=== PATIENT | female | born 1985 | race African-American/Black ===

== ENCOUNTER 2018-05-28 10:43 | Emergency (ER) | payer BC ==
[2018-05-28] MEDS ORDERED: Ketorolac Tromethamine 60 MG/2 ML VIAL ONE (11:07)
[2018-05-28] MEDS ORDERED: Lidocaine 1% (PF) 30 ML VIAL ONE (12:03)
[2018-05-28] MEDS ORDERED: Triple Antibiotic Oint 1 GM Packet ONE (12:51)
--- NOTE | 2018-05-28 12:52 | RAD ---
FRONTAL AND LATERAL IMAGING OF THE RIGHT TIBIA/FIBULA: Date: 05-28-18 Comparison: None. History: Laceration. FINDINGS: There is a soft tissue defect involving the proximal right calf anterior and lateral to the proximal right fibula. No associated fracture. No radiopaque foreign body. IMPRESSION: Proximal lateral right calf laceration with no associated fracture or radiopaque foreign body. POS: [facility]
== END 2018-05-28 12:35 | disposition home or self-care (01) ==
LOC: ERS 10:43
DX: S81.811A Laceration without foreign body, right lower leg, initial encounter (principal); F41.9 Anxiety disorder, unspecified; F32.9 Major depressive disorder, single episode, unspecified; F17.210 Nicotine dependence, cigarettes, uncomplicated; Z79.899 Other long term (current) drug therapy; W26.8XXA Contact with other sharp object(s), not elsewhere classified, initial encounter
CPT/HCPCS: 12002; 90471; 96372; J1885; J2001

== ENCOUNTER 2018-09-19 07:57 | Day surgery (SDC) | payer BC ==
[2018-09-18 13:48] VITALS: BMI 36.6
[2018-09-19] MEDS ORDERED: Ketorolac Tromethamine 30 MG/ML VIAL ONE (08:26)
[2018-09-19 08:46] LABS: #Basophils 0.1 thou/uL (0.0-0.2); #Eosinphils 0.2 thou/uL (0.0-0.7); #Lymphocytes 3.4 thou/uL (1.20-3.40); #Monocytes 0.7 thou/uL (0.11-0.59); #Neutrophils 5.1 thou/uL (1.40-6.50); %Basophils 0.7 % (0.0-1.0); %Eosinophils 2.1 % (0.0-10.0); %Lymphocytes 35.9 % (21.0-51.0); %Monocytes 7.1 % (0.0-10.0); %Neutrophils 54.2 % (42.0-75.0); Hemoglobin 13.2 g/dL (12.0-16.0); Mean Corpuscular HGB CONC 32.4 g/dL (32.0-36.0); Mean Corpuscular Hemoglobin 32.2 pg (27.0-31.0); Mean Corpuscular Volume 99.3 fL (78.0-98.0); Mean Platelet Volume 9.8 fL (7.4-10.4); Platelet Count 261 thou/uL (130-400); RBC Distribution Width 13.6 % (11.5-14.5); White Blood Cell (WBC) Count 9.4 thou/uL (4.8-10.8)
[2018-09-19] MEDS ORDERED: Midazolam HCl 2 mg/2 ml Vial ONE (08:48)
[2018-09-19] MEDS ORDERED: Fentanyl 100 MCG/2 ML VIAL ONE ×2 (08:48→09:33)
[2018-09-19] MEDS ORDERED: Bupivacaine/Epinephrine 0.25% 30 ML VIAL ONE ×2 (08:55→10:07)
[2018-09-19] MEDS ORDERED: Bupivacaine HCl 0.5%/Epinephrine 1:200,000/PF 30 ml Vial ONE (08:55)
[2018-09-19 09:01] LABS: Anion Gap 10 mmol/L (10-20); BUN (Urea Nitrogen) 11 mg/dL (7.0-18.7); Calc. Creatinine Clearance 180 mL/min (70-130); Calcium 9.2 mg/dL (7.8-10.44); Carbon Dioxide 25 mmol/L (22-29); Chloride 109 mmol/L (98-107); Estimated GFR-MDRD Greater than 90; Glucose 102 mg/dL (70-105); Sodium 140 mmol/L (136-145)
[2018-09-19 09:02] LABS: BHCG - Serum Negative (NEGATIVE); Pregs Control Background? CLEAR/WHITE (CLR/WHITE); Pregs Control Bar Appear? YES (CONTROL BAR)
[2018-09-19] MEDS ORDERED: Bacitracin Zinc Ointment 30 gm TUBE ONE (10:54)
[2018-09-19] MEDS ORDERED: PROPOFOL 200 MG/20 ML VIAL ONE (11:15)
[2018-09-19] MEDS ORDERED: Ondansetron PF 4 MG/2 ML Vial ONE (11:15)
[2018-09-19] MEDS ORDERED: Lidocaine 1% PF 5 ML VIAL ONE (11:15)
[2018-09-19] MEDS ORDERED: Dexamethasone 20 MG/5 ML VIAL ONE (11:15)
[2018-09-19] MEDS ORDERED: Glycopyrrolate 0.2 MG/ML 5 ML SYRINGE ONE (11:15)
[2018-09-19] MEDS ORDERED: Rocuronium Bromide 10 MG/ML (10ML VIAL) ONE (11:15)
[2018-09-19] MEDS ORDERED: HYDROcodone/Acetaminophen 5/325 mg Tablet ONE (13:35)
--- NOTE | 2018-09-20 09:12 | PDOC.OP ---
Operative Note - Operative Note Operative Note: PROCEDURE: Excision of left breast and left axillary hidradenitis SURGEON: Spenser Taylor M.D. DATE: 09/19/2018 PREOPERATIVE DIAGNOSIS: Left breast and left axillary hidradenitis POSTOPERATIVE DIAGNOSIS: Left breast and left axillary hidradenitis HISTORY: Patient with long-standing history of chronic hidradenitis of left greater than right axilla, left breast, and bilateral upper inner thighs. She has decided to proceed with excision of the hidradenitis of her left breast and axilla as these are the most symptomatic areas. PROCEDURE IN DETAIL: After informed consent was obtained and appropriate preoperative antibiotics administered, the patient was taken to the operating room where she was placed in the supine position and general anesthesia administered. Her arm was supported on a wedge and shoulder bump placed to elevate the axilla. She was prepped and draped in standard sterile fashion and the planned excision areas marked on the skin. Local anesthesia was infused circumferentially. The left breast hidradenitis area was addressed first. An elliptical incision was made incorporating both of the chronic sinuses. The skin and subcutaneous tissue were excised and the specimen was marked with long lateral suture. The wound was irrigated and hemostasis verified. The subcutaneous tissues were reapproximated with 3-0 Monocryl suture and the skin was closed with a running 4-0 subcuticular Monocryl suture. Dermabond dressings were applied. Attention was then turned to the axilla. The patient had an extensive area of involvement extending onto the upper inner arm. A hema- shaped incision was made to incorporate all of the involved skin and the hairbearing skin of the axilla. The skin and subcutaneous tissues were removed staying superficial to the true axilla and the specimen was oriented with a long lateral suture. The surrounding subcutaneous tissues were then undermined for a distance of 3-5 cm to allow primary closure. The wound was irrigated and hemostasis verified. Additional local anesthesia was placed circumferentially for postoperative pain control. The wound was closed in a stellate primarily transverse fashion using a combination of interrupted horizontal mattress and interrupted vertical mattress sutures. Bacitracin and Telfa and Tegaderm dressings were placed and the patient was extubated and taken to recovery in good condition. Estimated blood loss was minimal. There were no complications. Specimen is left breast and left axillary hidradenitis.
== END 2018-09-19 14:28 | disposition home or self-care (01) ==
LOC: SDC 07:57
PROVIDERS: ATTEND Surgery
PROC: 0JBF0ZZ Excision of Left Upper Arm Subcutaneous Tissue and Fascia, Open Approach (ICD-10-PCS; principal; 2018-09-19)
PROC: 0HBU0ZZ Excision of Left Breast, Open Approach (ICD-10-PCS; principal; 2018-09-19)
DX: L73.2 Hidradenitis suppurativa (principal); L72.0 Epidermal cyst; F32.9 Major depressive disorder, single episode, unspecified; F17.210 Nicotine dependence, cigarettes, uncomplicated; Z79.82 Long term (current) use of aspirin; Z79.899 Other long term (current) drug therapy
CPT/HCPCS: 36415; 80048; 84703; 85025; 88304; J0131; J0670; J1100; J1885; J2001; J2250; J2405; J2704; J3010

== ENCOUNTER 2018-09-27 13:23 | Emergency (ER) | payer BC ==
[2018-09-27] MEDS ORDERED: traMADol HCl 50 MG TAB ONE (13:45)
[2018-09-27] MEDS ORDERED: Sulfameth/Trimethoprim DS 800-160mg TAB ONE (13:46)
[2018-09-27] MEDS ORDERED: cefTRIAXone\\ROCEPHIN 1 GM VIAL ONE (13:46)
[2018-09-27] MEDS ORDERED: Acetaminophen 500 MG TAB ONE (13:46)
[2018-09-27] MEDS ORDERED: Lidocaine 1% PF 5 ML VIAL ONE (13:46)
== END 2018-09-27 14:20 | disposition home or self-care (01) ==
LOC: ERS 13:23
DX: T81.40XA Infection following a procedure, unspecified, initial encounter (principal); I10 Essential (primary) hypertension; F41.9 Anxiety disorder, unspecified; F32.9 Major depressive disorder, single episode, unspecified; F17.210 Nicotine dependence, cigarettes, uncomplicated; Z79.899 Other long term (current) drug therapy
CPT/HCPCS: 87070; 87077; 87186; 87205; 96372; J0696; J2001

== ENCOUNTER 2018-10-06 18:00 | Outpatient (CLI) | payer BC | END 2018-10-06 18:01 | disposition home or self-care (01) | LOC: SLEEPLAB 18:00 | PROVIDERS: ATTEND Family Medicine | DX: G47.33 Obstructive sleep apnea (adult) (pediatric) (principal); R06.83 Snoring; F32.9 Major depressive disorder, single episode, unspecified | CPT/HCPCS: 95806 ==

== ENCOUNTER 2018-10-10 09:05 | Outpatient (CLI) | payer BC ==
[2018-10-10] MEDS ORDERED: Sodium Chloride 0.9% 15 ML NEB ONE (19:11)
[2018-10-10] MEDS ORDERED: Lidocaine 2% 11 ML SYR ONE (19:11)
== END 2018-10-10 09:06 | disposition home or self-care (01) ==
LOC: WCC 09:05
PROVIDERS: ATTEND Family Medicine
DX: L73.2 Hidradenitis suppurativa (principal)
CPT/HCPCS: 97605; A4218

== ENCOUNTER 2018-10-14 09:08 | Outpatient (CLI) | payer BC ==
[2018-10-14] MEDS ORDERED: Lidocaine 4% Topical Sol 50 ML BOT ONE (19:24)
[2018-10-14] MEDS ORDERED: Sodium Chloride 0.9% 15 ML NEB ONE (19:24)
== END 2018-10-14 09:09 | disposition home or self-care (01) ==
LOC: WCC 09:08
PROVIDERS: ATTEND Family Medicine
DX: T81.89XD Other complications of procedures, not elsewhere classified, subsequent encounter (principal)
CPT/HCPCS: 97605; A4218

== ENCOUNTER 2018-10-17 10:15 | Outpatient (CLI) | payer BC ==
[2018-10-17] MEDS ORDERED: Sodium Chloride 0.9% 15 ML NEB ONE (16:23)
== END 2018-10-17 10:16 | disposition home or self-care (01) ==
LOC: WCC 10:15
PROVIDERS: ATTEND Family Medicine
DX: T81.89XD Other complications of procedures, not elsewhere classified, subsequent encounter (principal)
CPT/HCPCS: 97605; A4218

== ENCOUNTER 2018-10-21 09:36 | Outpatient (CLI) | payer BC ==
[2018-10-21] MEDS ORDERED: Sodium Chloride 0.9% 15 ML NEB ONE (18:00)
== END 2018-10-21 09:37 | disposition home or self-care (01) ==
LOC: WCC 09:36
PROVIDERS: ATTEND Family Medicine
DX: T81.89XD Other complications of procedures, not elsewhere classified, subsequent encounter (principal)
CPT/HCPCS: 97605; A4218

== ENCOUNTER 2018-10-22 09:20 | Outpatient (CLI) | payer BC ==
--- NOTE | 2018-10-22 09:55 | ULT ---
Exam: Thyroid ultrasound HISTORY: Thyromegaly COMPARISON: None TECHNIQUE: Sagittal and transverse grayscale imaging of the thyroid gland is performed FINDINGS: Thyroid isthmus measures 0.4 cm Right thyroid lobe measures 5.0 x 1.8 x 2.1 cm. Left thyroid lobe measures 4.8 x 1.6 x 1.7 cm No solid or cystic masses throughout the thyroid gland. IMPRESSION: no solid or cystic masses throughout the thyroid gland.
--- NOTE | 2018-10-22 10:19 | ULT ---
Exam: Transabdominal and endovaginal pelvic ultrasound HISTORY: Pelvic pain COMPARISON: None TECHNIQUE: Transabdominal and endovaginal imaging of the pelvis is performed. Ovaries are interrogate d with grayscale, color flow, Doppler imaging and spectral wave form analysis FINDINGS: Uterus: No myometrial masses. Uterus measurin.1 x 4.6 x 5.4 cm. Endometrium: Homogeneous echotexture. Endometrium diameter: 1.2 cm. . Free fluid: None Left ovary: Heterogeneous echotexture with septation suggesting a complex or hemorrhagic cyst occupyi ng the majority of the left ovary. Cyst measures 2.8 x 2.5 x 2.9 cm Left ovary measurements: 4.7 x 3.4 x 3.0 cm Right ovary: Normal echotexture Right ovary measurement: 2.1 x 2.1 x 3.2 cm Ovarian Doppler: There is vascular flow to the left and right ovary. IMPRESSION: 1. Unremarkable ultrasound of the uterus. 2. Complex or hemorrhagic cyst involving the left ovary. Follow-up ultrasound in 8 weeks is recommen ded to ensure resolution.
== END 2018-10-22 09:21 | disposition home or self-care (01) ==
LOC: BICULT 09:20
PROVIDERS: ATTEND Family Medicine
DX: E01.0 Iodine-deficiency related diffuse (endemic) goiter (principal); R10.2 Pelvic and perineal pain; N83.202 Unspecified ovarian cyst, left side
CPT/HCPCS: 76536; 76856

== ENCOUNTER 2021-11-21 13:11 | Outpatient (CLI) | payer BC | END 2021-11-21 13:12 | disposition home or self-care (01) | LOC: BICMRI 13:11 | PROVIDERS: ATTEND Orthopaedic Surgery | DX: M23.91 Unspecified internal derangement of right knee (principal) ==